=== PATIENT | female | born 1990 | race Caucasian/White ===

== ENCOUNTER 2023-01-30 11:39 | Inpatient (IN) | payer OTHER ==
[2023-01-30] MEDS ORDERED: Promethazine HCl 25 MG/ML VIAL IM PRN (20:25)
[2023-01-30] MEDS ORDERED: Methylergonovine 0.2 MG/ML VIAL IM PRN (20:25)
[2023-01-30] MEDS ORDERED: hydrALAZINE 20 MG/ML VIAL SLOW IVP PRN (20:25)
[2023-01-30] MEDS ORDERED: Carboprost 250 MCG/ML AMP IM PRN (20:25)
[2023-01-30] MEDS ORDERED: Misoprostol 200 MCG TAB PR PRN (20:25)
[2023-01-30] MEDS ORDERED: HYDROcodone/Acetaminophen 5/325 mg Tablet PO PRN ×2 (20:25)
[2023-01-30] MEDS ORDERED: Ondansetron PF 4 MG/2 ML Vial IVP PRN (20:25)
[2023-01-30] MEDS ORDERED: Ibuprofen 800 MG TAB PO PRN (20:25)
[2023-01-30] MEDS ORDERED: Zolpidem Tartrate 5 MG TAB PO PRN (20:25)
[2023-01-30] MEDS ORDERED: Acetaminophen 500 MG TAB PO PRN (20:25)
[2023-01-30] MEDS ORDERED: Tranexamic Acid 1,000 MG/10 ML VIAL IVP PRN (20:25)
[2023-01-30] MEDS ORDERED: Diphenoxylate HCl/Atropine Tablet PO PRN ×2 (20:25)
[2023-01-30] MEDS ORDERED: Lidocaine 1% (PF) 30 ML VIAL SC PRN (20:25)
[2023-01-30] MEDS ORDERED: fentaNYL 50 mcg/mL 1 mL Vial SLOW IVP PRN (20:25)
[2023-01-30] MEDS: Lactated Ringer's 1,000 ML IV SCH (20:30)
[2023-01-30] MEDS ORDERED: NS w/ Oxytocin 30 units 500 ML IV SCH ×2 (20:30)
[2023-01-30 20:33] VITALS: BMI 30.9
[2023-01-30] MEDS: Misoprostol 100 MCG TAB VAG SCH (20:57)
[2023-01-30 20:59] LABS: Hematocrit 34.3 % (34.9-44.5); Hemoglobin 11.4 g/dL (12.0-15.5); Mean Corpuscular HGB CONC 33.2 g/dL (32.0-36.0); Mean Corpuscular Hemoglobin 29.2 pg (27.0-33.0); Mean Corpuscular Volume 87.7 fl (81.6-98.3); Mean Platelet Volume 10.5 fl (7.4-10.4); Platelet Count 180 10x3/uL (150-450); RBC Distribution Width 12.7 % (11.5-14.5); Red Blood Cell (RBC) Count 3.91 10x6/uL (3.90-5.03); White Blood Cell (WBC) Count 7.4 10x3/uL (3.5-10.5)
[2023-01-30 21:49] LABS: HBSAg Index 0.16 S/CO (0-0.99); Hep B Surf Ag - L&D Non-Reactive S/CO (NonReactive); Syphilis Antibody Nonreactive (Nonreactive); Syphilis Antibody Index 0.07 S/CO (<1.00 Non-Reactive)
[2023-01-31] MEDS: Lactated Ringer's 1,000 ML IV SCH ×2 (05:47→14:10)
[2023-01-31] MEDS: Misoprostol 100 MCG TAB VAG SCH ×3 (05:47→14:10)
[2023-01-31] MEDS ORDERED: fentaNYL/Ropivacaine Epidural 100 ML ONE (07:59)
[2023-01-31] MEDS ORDERED: Promethazine HCl 25 MG/ML VIAL IM PRN (08:42)
[2023-01-31] MEDS ORDERED: Acetaminophen 325 MG TAB PO PRN (08:42)
[2023-01-31] MEDS ORDERED: Lactated Ringer's 500 ML IV PRN (08:42)
[2023-01-31] MEDS ORDERED: Moisturizing Cream (Eucerin) 113 GM JAR TOP PRN (08:42)
[2023-01-31] MEDS ORDERED: Naloxone HCl 0.4 mg/ml Vial IVP PRN ×2 (08:42)
[2023-01-31] MEDS ORDERED: ePHEDrine Sulfate 50 MG/10 ML VIAL SLOW IVP PRN (08:42)
[2023-01-31] MEDS ORDERED: diphenhydrAMINE 50 MG/ML VIAL IVP PRN (08:42)
[2023-01-31] MEDS ORDERED: Ondansetron PF 4 MG/2 ML Vial IVP PRN (08:42)
[2023-01-31] MEDS ORDERED: Communication Order-Pharmacy FS SCH (08:45)
[2023-01-31] MEDS ORDERED: fentaNYL 2 mcg/Ropivacaine 0.2% Epidural 100 ML CADD EPIDURAL SCH (08:45)
[2023-01-31] MEDS ORDERED: hydrALAZINE 20 MG/ML VIAL SLOW IVP PRN (14:01)
[2023-01-31] MEDS ORDERED: Bisacodyl 10 MG SUPP PR PRN (14:01)
[2023-01-31] MEDS ORDERED: Benzocaine-Menthol 82.5 ML CAN TOP PRN (14:01)
[2023-01-31] MEDS ORDERED: Milk Of Magnesia 30 ML UDCUP PO PRN (14:01)
[2023-01-31] MEDS ORDERED: Boostrix 0.5 ML (Tdap) VIAL (>/=7 yrs of age) IM ONE (14:01)
[2023-01-31] MEDS ORDERED: diphenhydrAMINE 25 MG CAP PO PRN (14:01)
[2023-01-31] MEDS ORDERED: Lanolin Ointment 7 GM TUBE TOP PRN (14:01)
[2023-01-31] MEDS ORDERED: Preparation H Ointment 28 GM TUBE PR PRN (14:01)
[2023-01-31] MEDS ORDERED: traMADol HCl 50 MG TAB PO PRN (14:01)
[2023-01-31] MEDS: Ibuprofen 800 MG TAB PO SCH ×2 (16:15→21:29)
[2023-01-31] MEDS: Ferrous Sulfate 325 MG TAB PO SCH (18:55)
[2023-01-31] MEDS ORDERED: Bupivacaine 0.25% HCL 30 ML VIAL ONE (19:46)
[2023-01-31] MEDS: Docusate 100 MG CAP PO SCH (21:29)
[2023-02-01] MEDS: Ibuprofen 800 MG TAB PO SCH (05:47)
[2023-02-01] MEDS: Ferrous Sulfate 325 MG TAB PO SCH (07:20)
[2023-02-01] MEDS: Docusate 100 MG CAP PO SCH (07:37)
[2023-02-01 09:00] VITALS: BP 114/74; TEMP 97.7
[2023-02-01] MEDS ORDERED: Prenatal Vitamin 1 TAB PO SCH (09:00)
== END 2023-02-01 15:00 | disposition home or self-care (01) | DRG 807 ==
LOC: CSHLD 19:07 → CSHPP 01-31 13:44
PROVIDERS: ADMIT Obstetrics & Gynecology; ATTEND Obstetrics & Gynecology
PROC: 10E0XZZ Delivery of Products of Conception, External Approach (ICD-10-PCS; principal; 2023-01-31)
PROC: 0KQM0ZZ Repair Perineum Muscle, Open Approach (ICD-10-PCS; 2023-01-31)
PROC: 3E0P7VZ Introduction of Hormone into Female Reproductive, Via Natural or Artificial Opening (ICD-10-PCS; 2023-01-31)
PROC: 3E033VJ Introduction of Other Hormone into Peripheral Vein, Percutaneous Approach (ICD-10-PCS; 2023-01-31)
PROC: 3E0334Z Introduction of Serum, Toxoid and Vaccine into Peripheral Vein, Percutaneous Approach (ICD-10-PCS; 2023-01-31)
DX: O70.1 Second degree perineal laceration during delivery (principal); Z37.0 Single live birth; O26.893 Other specified pregnancy related conditions, third trimester; Z67.41 Type O blood, Rh negative; Z3A.39 39 weeks gestation of pregnancy; Z88.0 Allergy status to penicillin; Z88.1 Allergy status to other antibiotic agents
CPT/HCPCS: 36415; 51702; 85027; 86780; 86850; 86870; 86900; 86901; 87340; J2590; J7120; S0020